=== PATIENT | female | born 1990 | race Caucasian/White ===

== ENCOUNTER 2018-06-09 16:34 | Emergency (ER) | payer BC ==
[~2018-06-09] VITALS: Ht 154.9 cm; Wt 52.3 kg
[2018-06-09 16:36] VITALS: BP 135/88; TEMP 98.7
[2018-06-09 17:04] LABS: COLLECTION METHOD CLEAN CATCH
[2018-06-09] MEDS ORDERED: ADDERALL20 MG PO (17:09)
[2018-06-09] MEDS ORDERED: BUPRENORPHINE HC8 MG SL (17:10)
[2018-06-09 17:11] LABS: MUCOUS Present /lpf; PH 6 (5-8); SQUAMOUS EPITHELIAL 0-2 /hpf; URINE APPEARANCE Clear; URINE BACTERIA None Seen /hpf; URINE BILIRUBIN Negative (NEGATIVE); URINE BLOOD Negative (NEGATIVE); URINE COLOR Yellow; URINE GLUCOSE Negative (NEGATIVE); URINE KETONE Negative (NEGATIVE); URINE LEUKOCYTE ESTERASE Negative (NEGATIVE); URINE NITRATE Negative (NEGATIVE); URINE PROTEIN(semi-quant) Negative (NEGATIVE); URINE RBC 0-2 /hpf; URINE UROBILINOGEN >=4.0 mg/dL (NEGATIVE)
[2018-06-09] MEDS ORDERED: XANAX2 MG PO (17:11)
[2018-06-09 17:38] VITALS: PULSE 68
== END 2018-06-09 17:32 | disposition home or self-care (01) ==
LOC: COL.ER 16:34
PROVIDERS: Physician Assistant
DX: R11.0 Nausea (principal); M79.7 Fibromyalgia; R19.7 Diarrhea, unspecified; Z76.0 Encounter for issue of repeat prescription